=== PATIENT | male | born 1970 | race Caucasian/White ===

== ENCOUNTER → 2017-03-15 | Emergency (ER) | payer OTHER ==
[~2017-03-15] VITALS: Ht 185.4 cm; Wt 110.0 kg
[~2017-03-15] MED LIST: LIDODERM 5% P1 PATCH TD; NEXIUM20 MG PO; NORCO 5/3251 TABLET PO; ROBAXIN500 MG PO; TORADOL10 MG PO; [UNRECOGNIZED DRUG - OTHER] PO
[2017-03-15 15:28] LABS: HEMATOCRIT 44.4 % (38.0-50.0); MCH 31.7 PG (29.0-34.0); MCHC 35.4 G/DL (30.0-36.0); MCV 89.7 FL (86-99); MEAN PLAT.VOLUME 9.1 uM^3 (9.0-12.4); PLATELET COUNT 222 K/uL (156-360); RBC DIS.WIDTH-CV 12.5 % (11.8-14.6); RBC DIS.WIDTH-SD 41.2 % (39-53); RED BLOOD COUNT 4.95 M/uL (4.00-5.50); WHITE BLOOD COUNT 10.4 K/uL (4.1-10.2)
[2017-03-15 15:39] LABS: CHLORIDE 105 mEq/L (99-109); POTASSIUM 3.8 mEq/L (3.7-5.4); SODIUM 137 mEq/L (136-147)
[2017-03-15 15:41] LABS: GLUCOSE 90 mg/dL (70-99)
[2017-03-15 15:42] LABS: ANION GAP 9 MEQ/L (2-14)
[2017-03-15 15:44] LABS: GFR ESTIMATE (CALCULATED) > 59 mL/min/
[2017-03-15 15:45] LABS: UREA NITROGEN (BUN) 11 mg/dL (9-23)
[2017-03-15 16:07] LABS: ADD MIUA? NO; BILIRUBIN NEGATIVE; BLOOD NEGATIVE; COLOR YELLOW ((YELLOW)); GLUCOSE (STRIP) NEGATIVE; KETONES NEGATIVE; LEUKOCYTES NEGATIVE; NITRITE NEGATIVE; PROTEIN (STRIP) NEGATIVE; SPECIFIC GRAVITY 1.019 (1.000-1.030); UCUL ADDED? NO; UROBILINOGEN 0.2 MG/DL (0.2-1.0)
[2017-03-15 18:12] VITALS: BP 133/89
== END | disposition home or self-care (01) ==
LOC: EME 15:03
DX: R10.30 Lower abdominal pain, unspecified (principal); M54.9 Dorsalgia, unspecified; R35.0 Frequency of micturition; R39.11 Hesitancy of micturition; R11.0 Nausea; F17.200 Nicotine dependence, unspecified, uncomplicated
CPT/HCPCS: 74176; 80048; 81003; 85027; 99281; 99284; J1885; J2360

== ENCOUNTER 2017-04-15 05:41 | Emergency (ER) | payer OTHER ==
[~2017-04-15] VITALS: Ht 185.4 cm; Wt 110.2 kg
[2017-04-15 06:09] LABS: HEMATOCRIT 44.4 % (38.0-50.0); MCH 31.3 PG (29.0-34.0); MCHC 35.6 G/DL (30.0-36.0); MCV 87.9 FL (86-99); MEAN PLAT.VOLUME 9.1 uM^3 (9.0-12.4); PLATELET COUNT 246 K/uL (156-360); RBC DIS.WIDTH-CV 12.1 % (11.8-14.6); RBC DIS.WIDTH-SD 38.9 % (39-53); RED BLOOD COUNT 5.05 M/uL (4.00-5.50); WHITE BLOOD COUNT 9.1 K/uL (4.1-10.2)
[2017-04-15 06:19] LABS: CHLORIDE 106 mEq/L (99-109); POTASSIUM 4.3 mEq/L (3.7-5.4); SODIUM 138 mEq/L (136-147)
[2017-04-15 06:21] LABS: GLUCOSE 108 mg/dL (70-99)
[2017-04-15 06:22] LABS: ANION GAP 10 MEQ/L (2-14)
[2017-04-15 06:25] LABS: GFR ESTIMATE (CALCULATED) > 59 mL/min/ (58.99-99999)
[2017-04-15 06:26] LABS: UREA NITROGEN (BUN) 16 mg/dL (9-23)
[2017-04-15 06:34] LABS: ADD MIUA? NO; BILIRUBIN NEGATIVE; BLOOD NEGATIVE; COLOR YELLOW ((YELLOW)); GLUCOSE (STRIP) NEGATIVE; KETONES NEGATIVE; LEUKOCYTES NEGATIVE; NITRITE NEGATIVE; PROTEIN (STRIP) NEGATIVE; SPECIFIC GRAVITY 1.027 (1.000-1.030); UCUL ADDED? NO; UROBILINOGEN 0.2 MG/DL (0.2-1.0)
[2017-04-15 07:27] LABS: AMYLASE 59 IU/L (1-118)
[2017-04-15 07:36] LABS: LIPASE 28 U/L (1.0-51.0)
[2017-04-15 08:41] LABS: AMPHETAMINE NEGATIVE (500 ng/mL); BARBITURATES NEGATIVE (200 ng/mL); BENZODIAZEPINES NEGATIVE (150 ng/mL); COCAINE NEGATIVE (150 ng/mL); INTERNAL CONTROLS VALID? YES; METHADONE NEGATIVE (200 ng/mL); METHAMPHETAMINE NEGATIVE (500 ng/mL); OPIATES (MORPHINE) NEGATIVE (100 ng/mL); OXYCODONE NEGATIVE (100 ng/mL); PHENCYCLIDINE NEGATIVE (25 ng/mL); PROPOXYPHENE NEGATIVE (300 ng/mL); THC CANNABINOIDS NEGATIVE (50 ng/mL); TRICYCLIC ANTIDEPRESSANTS NEGATIVE (300 ng/mL)
[2017-04-15] MEDS ORDERED: ROBAXIN500 MG PO (09:44)
[2017-04-15 09:58] VITALS: BP 162/114
== END 2017-04-15 10:00 | disposition home or self-care (01) ==
LOC: EME 05:41
DX: R10.31 Right lower quadrant pain (principal); R39.198 Other difficulties with micturition; I86.1 Scrotal varices; N43.3 Hydrocele, unspecified; F17.210 Nicotine dependence, cigarettes, uncomplicated
CPT/HCPCS: 74176; 76870; 80048; 81003; 82150; 83690; 85027; 99281; 99284; J1630; J1885; J3010

== ENCOUNTER → 2017-05-15 | Outpatient (CLI) | payer OTHER ==
[~2017-05-15] VITALS: Ht 185.4 cm; Wt 109.8 kg
[~2017-05-15] MED LIST changes: +ACETAMINOPHEN-1 EAC1 PO; +MOBIC15 MG PO; +NEURONTIN300 MG PO; +NICODERM CQ1 EAC2 TD; +ULTRAM50 MG PO
== END | disposition home or self-care (01) ==
LOC: AMB 11:27
DX: K44.9 Diaphragmatic hernia without obstruction or gangrene (principal); K29.70 Gastritis, unspecified, without bleeding; F17.200 Nicotine dependence, unspecified, uncomplicated; Z82.49 Family history of ischemic heart disease and other diseases of the circulatory system
CPT/HCPCS: 88305; 88342 TC; J2250